=== PATIENT | female | born 1960 | race Caucasian/White ===

== ENCOUNTER → 2020-09-14 | Outpatient (CLI) | payer OTHER | LOC: WCC 10:36 | DX: Z53.21 Procedure and treatment not carried out due to patient leaving prior to being seen by health care provider (principal) ==

== ENCOUNTER 2022-03-29 10:58 | Inpatient (IN) | payer OTHER ==
[~2022-03-29] VITALS: Ht 165.1 cm; Wt 42.7 kg
[2022-03-29 13:00] LABS: HEMOGLOBIN 14.7 gm/dl (12.3-15.3); RED BLOOD COUNT 5.01 M/UL (4.00-5.10); WHITE BLOOD COUNT 6.6 K/UL (4.5-11.0)
[2022-03-29 13:28] LABS: BUN/CREATININE RATIO 24 (0-10)
[2022-03-30 07:31] LABS: BUN/CREATININE RATIO 21 (0-10); HEMOGLOBIN 12.8 gm/dl (12.3-15.3); WHITE BLOOD COUNT 5.4 K/UL (4.5-11.0)
[2022-03-30 07:50] LABS: RED BLOOD COUNT 4.25 M/UL (4.00-5.10)
[2022-03-31 06:09] LABS: BUN/CREATININE RATIO 21 (0-10)
[2022-03-31] MEDS ORDERED: LISINOPRIL5 MG PO (18:41)
[2022-03-31] MEDS ORDERED: AMLODIPINE BESYL5 MG PO (18:41)
[2022-03-31] MEDS ORDERED: HUMALOG 10100 UNITS/ SC (18:41)
[2022-03-31] MEDS ORDERED: LANTUS INS100 UTS/M1 SC ×2 (18:41)
[2022-04-01 04:49] LABS: BUN/CREATININE RATIO 35 (0-10)
--- NOTE | 2022-04-01 18:33 | NUR ---
SPOKE WITH [facility] AT [facility] RE: BED STATUS @ [id number] AND 4445. NO BEDS AT PRESENT TIME. WILL UPDATE ON NOC SHIFT OR IF BED BECOME AVAILABLE
== END 2022-04-02 01:00 | DRG 300 ==
LOC: ER1 10:58 → CDU 15:15 → MED SURG 4 20:39
PROVIDERS: Physician Assistant; ADMIT Internal Medicine
DX: E11.52 Type 2 diabetes mellitus with diabetic peripheral angiopathy with gangrene (principal); E44.0 Moderate protein-calorie malnutrition; M86.8X7 Other osteomyelitis, ankle and foot; Z68.1 Body mass index [BMI] 19.9 or less, adult; I25.10 Atherosclerotic heart disease of native coronary artery without angina pectoris; E11.621 Type 2 diabetes mellitus with foot ulcer; L97.519 Non-pressure chronic ulcer of other part of right foot with unspecified severity; F17.210 Nicotine dependence, cigarettes, uncomplicated; I10 Essential (primary) hypertension; E11.40 Type 2 diabetes mellitus with diabetic neuropathy, unspecified; E11.69 Type 2 diabetes mellitus with other specified complication; Z79.4 Long term (current) use of insulin; Z95.1 Presence of aortocoronary bypass graft; Z82.49 Family history of ischemic heart disease and other diseases of the circulatory system; Z90.49 Acquired absence of other specified parts of digestive tract
CPT/HCPCS: 36415; 71045; 73700; 73718; 80048; 80053; 80202; 81001; 82550; 82553; 82962; 83036; 83605; 83735; 84484; 85025; 85652; 86140; 87040; 87070; 87077; 87186; 87205; 93005; 93926; 96374; 96375; 99285; J0692; J0696; J1650; J2543; J3370; J7070